=== PATIENT | female | born 1965 | race Caucasian/White ===

== ENCOUNTER → 2024-04-11 | Outpatient (CLI) | payer MEDICAID ==
[~2024-04-11] VITALS: Ht 162.6 cm; Wt 131.5 kg
[2024-04-11] MEDS: albuterol 2.5 MG/3 ML nebule NEB ONE (10:44)
[2024-04-11 10:45] VITALS: PULSE 90; RESP 18; O2SAT 97
[2024-04-11 11:05] VITALS: PULSE 72; RESP 16; O2SAT 98
== END | disposition home or self-care (01) ==
LOC: 64 CT 08:33
PROVIDERS: ATTEND Nurse Practitioner Family
DX: Z12.2 Encounter for screening for malignant neoplasm of respiratory organs (principal); R06.02 Shortness of breath; I25.10 Atherosclerotic heart disease of native coronary artery without angina pectoris; F17.210 Nicotine dependence, cigarettes, uncomplicated; M47.814 Spondylosis without myelopathy or radiculopathy, thoracic region
CPT/HCPCS: 71271; 94060; 94760